=== PATIENT | female | born 1985 | race African-American/Black ===

== ENCOUNTER 2019-04-04 10:56 | Observation (INO) | payer MEDICAID ==
[~2019-04-04] VITALS: Ht 162.6 cm; Wt 186.9 kg
[2019-04-04 12:34] LABS: CLARITY URINE CLEAR (CLEAR); COLOR URINE YELLOW (YELLOW); KETONES URINE NEGATIVE (NEGATIVE); LEUKOCYTE ESTERASE URINE NEGATIVE (NEGATIVE); NITRITE URINE NEGATIVE (NEGATIVE); OCCULT BLOOD URINE NEGATIVE (NEGATIVE); PH URINE 6.5 (4.5-8.0); PROTEIN URINE NEGATIVE (NEGATIVE); SPECIFIC GRAVITY URINE 1.018 (1.005-1.030); UROBILINOGEN URINE 0.2 E.U./dL (0.2-1.0)
[2019-04-04 12:37] LABS: BASOPHILS % 0.3 % (0.0-2.0); EOSINOPHILS % 1.5 % (0.0-5.0); HEMATOCRIT. 36.5 % (36.0-48.0); LYMPHOCYTES % 21.6 % (20.0-50.0); MEAN CORPUSCULAR HEMOGLOBIN 28.5 pg (28.0-32.0); MEAN CORPUSCULAR VOLUME 86.5 fL (81.0-99.0); MEAN PLATELET VOLUME 9.3 fl (7.4-10.4); MONOCYTES % 5.2 % (2.0-8.0); NEUTROPHILS % 71.4 % (40.0-76.0); PLATELET 281 x1000/uL (130-400); RED BLOOD CELL COUNT 4.22 mill/uL (4.2-5.4); RED CELL DISTRIBUTION WIDTH 14.7 % (11.6-14.6)
[2019-04-04 12:44] LABS: CHLORIDE 107 mEq/L (98-107)
[2019-04-04 12:54] LABS: D-DIMER 1.95 mg/L FEU (<0.50); INR 0.9; PARTIAL THROMBOPLASTIN TIME 28.9 sec (23.4-31.0); PROTHROMBIN TIME 9.5 sec (9.6-11.0)
[2019-04-11] MEDS ORDERED: PNV1TABL76 MT (08:42)
[2019-04-11] MEDS ORDERED: NIFE30TA83 MT (08:42)
== END 2019-04-04 14:00 | disposition home or self-care (01) ==
LOC: LAB 10:56 → 8 EST LDRP 11:09 → 8 EST A/PP 11:20
PROVIDERS: ADMIT Obstetrics & Gynecology Maternal & Fetal Medicine; ATTEND Obstetrics & Gynecology
DX: O13.3 Gestational [pregnancy-induced] hypertension without significant proteinuria, third trimester (principal); Z3A.36 36 weeks gestation of pregnancy
CPT/HCPCS: 36415; 80053; 81003; 84550; 85025; 85379; 85384; 85610; 85730; 99281; G0378

== ENCOUNTER 2019-04-08 16:39 | Emergency (ER) | payer MEDICAID ==
[~2019-04-08] VITALS: Ht 162.6 cm; Wt 180.0 kg
[2019-04-08] MEDS ORDERED: DIPHENHYDRAMINE 50MG/ML VIAL IM ONE (19:45)
[2019-04-08] MEDS ORDERED: FAMOTIDINE 20MG TABLET PO ONE (19:45)
[2019-04-08 21:05] VITALS: BP 143/96
[2019-04-11] MEDS ORDERED: PNV1TABL76 MT (08:42)
[2019-04-11] MEDS ORDERED: NIFE30TA83 MT (08:42)
== END 2019-04-08 21:28 | disposition home or self-care (01) ==
LOC: ER 17:43
DX: O99.89 Other specified diseases and conditions complicating pregnancy, childbirth and the puerperium (principal); L50.0 Allergic urticaria; Z3A.37 37 weeks gestation of pregnancy
CPT/HCPCS: 96372; 99283; J1200